=== PATIENT | male | born 1965 | race African-American/Black ===

== ENCOUNTER → 2020-10-21 | Outpatient (CLI) | payer OTHER ==
[~2020-10-21] MED LIST: ENDOCET 7.5-321 EACH PO; RELAFEN750 MG PO
== END ==
LOC: CAT 11:12
PROVIDERS: ATTEND Family Medicine
DX: Z13.6 Encounter for screening for cardiovascular disorders (principal); E78.00 Pure hypercholesterolemia, unspecified; I25.10 Atherosclerotic heart disease of native coronary artery without angina pectoris